=== PATIENT | female | born 2005 | race Caucasian/White ===

== ENCOUNTER → 2024-06-08 09:00 | Outpatient (REF) | payer OTHER, SELFPAY | LOC: HWRAD 09:00 | PROVIDERS: ATTENDING PHYSICIAN Obstetrics & Gynecology Gynecology; FAMILY PHYSICIAN Nurse Practitioner Family | DX: N93.9 Abnormal uterine and vaginal bleeding, unspecified (principal); Z97.5 Presence of (intrauterine) contraceptive device | CPT/HCPCS: 76830; 76856 ==